=== PATIENT | female | born 1975 | race Two or more races ===

== ENCOUNTER 2017-07-05 19:29 | Emergency (ER) | payer BC ==
[2017-07-05 20:15] LABS: URINE HCG POC HCG POSITIVE (Negative)
[2017-07-05 20:20] LABS: BILIRUBIN,URINE NEGATIVE (NEG); CLARITY,URINE CLEAR; COLOR,URINE YELLOW; GLUCOSE,URINE NEGATIVE (NEG); NITRITE,URINE NEGATIVE (NEG); PROTEIN,URINE NEGATIVE (NEG-TRACE); UROBILINOGEN,URINE 0.2 mg/dL (0.2 mg/dL)
[2017-07-05 20:34] LABS: BACTERIA,URINE MODERATE /HPF (0-FEW); SQUAMOUS EPITHELIAL CELL,UR MOD /LPF
[2017-07-05 20:45] LABS: ADD MAN DIFF? NO
[2017-07-05 20:50] LABS: BASO # 0.1 x10^3/uL (0.0-0.2); BASO % 1 % (0-3); EOS # 0.1 x10^3/uL (0.0-0.7); EOS % 1 % (0-3); HEMATOCRIT 35.8 % (36.0-47.0); HEMOGLOBIN 12.4 g/dL (12.0-15.5); LYMPH # 3.3 x10^3/uL (1.0-4.8); LYMPH % 32 % (24-48); MEAN CORPUSCULAR HEMOGLOBIN 31 pg (25-35); MEAN CORPUSCULAR HGB CONC 35 g/dL (31-37); MEAN CORPUSCULAR VOLUME 89 fL (79-100); MONO # 0.7 x10^3/uL (0.0-1.1); MONO % 7 % (0-9); NEUT % 59 % (31-73); PLATELET COUNT 254 x10^3/uL (140-400); RED BLOOD COUNT 4.02 x10^6/uL (3.50-5.40); RED CELL DISTRIBUTION WIDTH 14.9 % (11.5-14.5); WHITE BLOOD COUNT 10.2 x10^3/uL (4.0-11.0)
[2017-07-05 20:59] LABS: ANION GAP 8 (6-14); BLOOD UREA NITROGEN 15 mg/dL (7-20); CALCIUM 8.7 mg/dL (8.5-10.1); CARBON DIOXIDE 26 mmol/L (21-32); CHLORIDE 105 mmol/L (98-107); CREATININE 0.8 mg/dL (0.6-1.0); GFR 78.3; GLUCOSE 106 mg/dL (70-99); POTASSIUM 3.7 mmol/L (3.5-5.1); SODIUM 139 mmol/L (136-145)
== END 2017-07-05 23:40 | disposition home or self-care (01) ==
LOC: ER 19:29
DX: O20.0 Threatened abortion (principal); Z3A.01 Less than 8 weeks gestation of pregnancy
CPT/HCPCS: 36415; 76801; 76817; 80048; 81001; 81025; 84702; 85025; 86900; 86901; 87086; 99285-25

== ENCOUNTER 2017-07-06 02:29 | Emergency (ER) | payer BC ==
[2017-07-06 03:40] LABS: AGAP ISTAT 17 mmol/L (6-14); BUN ISTAT 12 mg/dL (8-26); CHLORIDE ISTAT 104 mmol/L (98-110); CREATININE ISTAT 0.7 mg/dL (0.5-1.4); GLUCOSE ISTAT 105 mg/dL (70-99); HEMATOCRIT ISTAT 38 % (36-40); HEMOGLOBIN ISTAT 12.9 g/dL (12-15); ION CA ISTAT 1.23 mmol/L (1.13-1.32); POTASSIUM ISTAT 3.9 mmol/L (3.5-5.0); SODIUM ISTAT 139 mmol/L (135-145); TOT CO2 ISTAT 24 mmol/L (23-32)
== END 2017-07-06 04:35 | disposition home or self-care (01) ==
LOC: ER 02:29
DX: O20.0 Threatened abortion (principal); Z3A.01 Less than 8 weeks gestation of pregnancy
CPT/HCPCS: 36415; 80047; 85014; 85018; 99282

== ENCOUNTER → 2017-07-20 | Outpatient (CLI) | payer BC | END | disposition home or self-care (01) | LOC: LAB 17:20 | DX: O03.4 Incomplete spontaneous abortion without complication (principal); Z3A.08 8 weeks gestation of pregnancy | CPT/HCPCS: 36415; 84702 ==

== ENCOUNTER 2020-01-03 13:08 | Emergency (ER) | payer BC, OTHER ==
[~2020-01-03] VITALS: Ht 167.6 cm; Wt 77.0 kg
[~2020-01-03 13:08] MED LIST: UNABLE MC
[2020-01-03 14:11] LABS: BILIRUBIN,URINE NEGATIVE (NEG); CLARITY,URINE CLEAR; COLOR,URINE YELLOW; NITRITE,URINE NEGATIVE (NEG); PH,URINE 7.5 (<5.0-8.0); PROTEIN,URINE NEGATIVE (NEG-TRACE); UROBILINOGEN,URINE 0.2 mg/dL (0.2 mg/dL)
--- NOTE | 2020-01-03 14:14 | PHYS DOC ---
Past Medical History Past Medical History: No Pertinent History Past Surgical History: No Surgical History Smoking Status: Never Smoker Alcohol Use: None Drug Use: None General Adult EDM: Chief Complaint: ABDOMINAL PAIN IN HPI: HPI: History obtained from patient. Patient is a 44-year-old female presents with chief complaint of lower abdominal discomfort over the past 4 days. States she had a positive test and clinic 4 days ago. She estimates for same last menstrual period was November 06. She does note light vaginal spotting 3 day s ago that is resolved. Denies clot passage. Denies syncope. Does note she has an appoint with her CHANDELIER MAKER in 4 days. Denies vomiting. Denies urinary symptoms. States pain is aching and mild in nature. States it is worse when she stands. Denies chest pain or shortness of breath. Has tried no medicine at home prior to arrival. No other complaints. Review of Systems: Review of Systems: Constitutional: Denies fever or chills. [] Eyes: Denies change in visual acuity. [] HENT: Denies nasal congestion or sore throat. [] Respiratory: Denies cough or shortness of breath. [] Cardiovascular: Denies chest pain or edema. [] GI: Positive for abdominal pain : Positive for vaginal bleeding Musculoskeletal: Denies back pain or joint pain. [] Integument: Denies rash. [] Neurologic: Denies headache, focal weakness or sensory changes. [] Endocrine: Denies polyuria or polydipsia. [] Lymphatic: Denies swollen glands. [] Psychiatric: Denies depression or anxiety. [] Heart Score: Risk Factors: Risk Factors: DM, Current or recent (<one month) smoker, HTN, HLP, family history of CAD, obesity. Risk Scores: Score 0 - 3: 2.5% MACE over next 6 weeks - Discharge Home Score 4 - 6: 20.3% MACE over next 6 weeks - Admit for Clinical Observation Score 7 - 10: 72.7% MACE over next 6 weeks - Early Invasive Strategies Current Medications: Current Medications Medications (Trade) Dose Ordered Sig/Valerie Start Time Stop Time Status Last Admin Dose Admin Acetaminophen (Tylenol) 1,000 mg 1X ONCE 01/03/20 14:15 01/03/20 14:16 UNV Allergies: Allergies: Allergies Coded Allergies Type Severity Reaction Last Updated Verified No Known Drug Allergies 07/05/17 No Physical Exam: PE: Constitutional: Well developed, well nourished, no acute distress, non-toxic appearance. [] HENT: Normocephalic, atraumatic, bilateral external ears normal, oropharynx moist, no oral exudates, nose normal. [] Eyes: PERRLA, EOMI, conjunctiva normal, no discharge. [] Neck: Normal range of motion, no tenderness, supple, no stridor. [] Cardiovascular:Heart rate regular rhythm, no murmur [] Lungs & Thorax: Bilateral breath sounds clear to auscultation [] Abdomen: Soft, nontender, nonacute abdomen. No involuntary guarding or rigidity noted. No acute peritonitis. Skin: Warm, dry, no erythema, no rash. [] Back: No tenderness, no CVA tenderness. [] Extremities: No tenderness, no cyanosis, no clubbing, ROM intact, no edema. [] Neurologic: Alert and oriented X 3, normal motor function, normal sensory function, no focal deficits noted. [] Psychologic: Affect normal, judgement normal, mood normal. [] Current Patient Data: Labs: Laboratory Tests Test 01/03/20 13:44 01/03/20 14:10 01/03/20 14:35 Urine Collection Type Unknown Urine Color Yellow Urine Clarity Clear Urine pH 7.5 Urine Specific [place] 1.020 Urine Protein Negative mg/dL Urine Glucose (UA) Negative mg/dL Urine Ketones (Stick) Negative mg/dL Urine Blood Negative Urine Nitrite Negative Urine Bilirubin Negative Urine Urobilinogen Dipstick 0.2 mg/dL Urine Leukocyte Esterase Trace Urine RBC Occ /HPF Urine WBC Occ /HPF Urine Squamous Epithelial Cells Mod /LPF Urine Bacteria Few /HPF Urine Mucus Mod /LPF Bedside Urine HCG, Qualitative Hcg positive White Blood Count 10.3 x10^3/uL Red Blood Count 4.38 x10^6/uL Hemoglobin 13.0 g/dL Hematocrit 38.4 % Mean Corpuscular Volume 88 fL Mean Corpuscular Hemoglobin 30 pg Mean Corpuscular Hemoglobin Concent 34 g/dL Red Cell Distribution Width 15.0 % Platelet Count 288 x10^3/uL Neutrophils (%) (Auto) 61 % Lymphocytes (%) (Auto) 30 % Monocytes (%) (Auto) 7 % Eosinophils (%) (Auto) 2 % Basophils (%) (Auto) 1 % Neutrophils # (Auto) 6.2 x10^3/uL Lymphocytes # (Auto) 3.0 x10^3/uL Monocytes # (Auto) 0.7 x10^3/uL Eosinophils # (Auto) 0.2 x10^3/uL Basophils # (Auto) 0.1 x10^3/uL Maternal Serum HCG Beta Subunit 18515 mIU/mL Sodium Level 138 mmol/L Potassium Level 4.1 mmol/L Chloride Level 104 mmol/L Carbon Dioxide Level 24 mmol/L Anion Gap 10 Blood Urea Nitrogen 13 mg/dL Creatinine 0.8 mg/dL Estimated GFR (Cockcroft-Gault) 77.6 BUN/Creatinine Ratio 16 Glucose Level 85 mg/dL Calcium Level 9.0 mg/dL Total Bilirubin 0.1 mg/dL Aspartate Amino Transf (AST/SGOT) 14 U/L Alanine Aminotransferase (ALT/SGPT) 20 U/L Alkaline Phosphatase 39 U/L Total Protein 7.1 g/dL Albumin 3.4 g/dL Albumin/Globulin Ratio 0.9 Lipase 175 U/L Current Medications Medications (Trade) Dose Ordered Sig/Valerie Route PRN Reason Start Time Stop Time Status Last Admin Dose Admin Acetaminophen (Tylenol) 1,000 mg 1X ONCE PO 01/03/20 14:15 01/03/20 14:16 DC 01/03/20 14:31 Laboratory Tests Test 01/03/20 14:10 POC Urine HCG, Qualitative Hcg positive (Negative) Vital Signs: Vital Signs Date Time Temp Pulse Resp B/P (MAP) Pulse Ox O2 Delivery O2 Flow Rate FiO2 01/03/20 14:04 97.5 68 16 110/61 (77) 97 Room Air 97.5 EKG: EKG: [] Radiology/Procedures: Radiology/Procedures: [facility] [address] [place] [address] IMAGING REPORT Signed PATIENT: SAMEER CLAY AACCOUNT: [id number] : 1975 LOCATION: ER AGE: 44 SEX: F EXAM STATUS: REG ER ORD. PHYSICIAN: JÚNIOR PEACOCK DO REASON: lower abdominal pain + preg PROCEDURE: OB <14 WKS W/TV Exam: Ultrasound OB less than 14 weeks Indication: Lower abdominal pain Technique: Real-time grayscale and color Doppler images of the pelvis were obtained by the department journeyman sheet metal worker. Comparisons: None FINDINGS: Uterus measures 11.9 x 6.9 x 6.2 cm. Within the endometrium there is a 1.5 cm ovoid hypoechoic structure. No internal yolk sac or pole is identified. Right ovary measures 3.0 x 1.8 x 2.1 cm. Vascular flow identified within the right ovary. Left ovary is not seen. No free fluid is identified. IMPRESSION: Possible gestational sac within the endometrium. No internal yolk sac or pole identified. Differential considerations include early IUP, failed IUP. Possibility of a nonvisualized ectopic with a pseudogestational sac is considered unlikely. Recommend correlation with serial beta hCG measurements and short-term follow-up ultrasound. Electronically signed by: Luigi Pradhan MD (01/03/2020 3:11 PM) [facility] DICTATED and SIGNED BY: LUIGI PRADHAN MD DATE: 01/03/201510 [] Course & Med Decision Making: Course & Med Decision Making Pertinent Labs and Imaging studies reviewed. (See chart for details) [] Patient is a well-appearing 44-year-old female G5, P2 who presents with chief complaint of lower abdominal discomfort and concern for . hCG level approximately 21,000. Ultrasound does reveal potential gestational sac without pole. Hemoglobin stable. Type and screen obtained previously shows blood type B+. RhoGam will be deferred. Pelvic exam also be deferred given the patient has no vaginal bleeding at this time. Patient's imaging findings could relate to early gestational . Given the patient's abdomen is benign, no current pain, no active bleeding with normal vital signs I do feel is appropriate to discharge patient home with close follow-up. She does have an appoint with her CHANDELIER MAKER in 2 days. She was instructed to return emergency department if she experiences symptoms including but not limited to worsening abdominal pain or vaginal bleeding. She did express understanding. She is comfortable with this plan. Encouraged use Tylenol at home. Stable for discharge. Dragon Disclaimer: Dragon Disclaimer: This electronic medical record was generated, in whole or in part, using a voice recognition dictation system. Departure Departure Impression: Primary Impression: , location unknown Disposition: 01 DC HOME SELF CARE/HOMELESS Condition: STABLE Referrals: NO PCP (PCP) Patient Instructions: Ectopic , Vaginal Bleeding During , [id number] Additional Instructions: Please follow-up with your CHANDELIER MAKER in the next 2 days. At your regularly scheduled appointment. [facility] [address] [place] [address] [facility] [address] [place] [address] [facility] [address] [facility] [place] [address] [facility] [address] [place] [address] [facility] [address] [place] [address] [address] [place] [address] [address] [place] [address] [place] [address] [facility] [address] [place] [address] [facility] [address] [place] [address] [facility] [address] [place] [address] JÚNIOR PEACOCK DO Jan 03, 2020 14:14
[2020-01-03] MEDS ORDERED: ACETAMINOPHEN 500 MG TABLET PO ONE (14:15)
[2020-01-03 14:19] LABS: BACTERIA,URINE FEW /HPF (0-FEW); RBC,URINE OCC /HPF (0-2); WBC,URINE OCC /HPF (0-4)
[2020-01-03 14:46] LABS: BASO # 0.1 x10^3/uL (0.0-0.2); BASO % 1 % (0-3); EOS # 0.2 x10^3/uL (0.0-0.7); EOS % 2 % (0-3); HEMATOCRIT 38.4 % (36.0-47.0); LYMPH % 30 % (24-48); MEAN CORPUSCULAR HEMOGLOBIN 30 pg (25-35); MEAN CORPUSCULAR HGB CONC 34 g/dL (31-37); MEAN CORPUSCULAR VOLUME 88 fL (79-100); MONO # 0.7 x10^3/uL (0.0-1.1); MONO % 7 % (0-9); NEUT # 6.2 x10^3/uL (1.8-7.7); NEUT % 61 % (31-73); PLATELET COUNT 288 x10^3/uL (140-400); RED BLOOD COUNT 4.38 x10^6/uL (3.50-5.40); WHITE BLOOD COUNT 10.3 x10^3/uL (4.0-11.0)
[2020-01-03 14:57] LABS: CREATININE 0.8 mg/dL (0.6-1.0); GFR 77.6; POTASSIUM 4.1 mmol/L (3.5-5.1)
[2020-01-03 15:03] LABS: ALBUMIN 3.4 g/dL (3.4-5.0); ALBUMIN/GLOBULIN RATIO 0.9 (1.0-1.7); TOTAL BILIRUBIN 0.1 mg/dL (0.2-1.0); TOTAL PROTEIN 7.1 g/dL (6.4-8.2)
--- NOTE | 2020-01-03 15:14 | RAD ---
Exam: Ultrasound OB less than 14 weeks Indication: Lower abdominal pain Technique: Real-time grayscale and color Doppler images of the pelvis were obtained by the department road mixer operator. Comparisons: None FINDINGS: Uterus measures 11.9 x 6.9 x 6.2 cm. Within the endometrium there is a 1.5 cm ovoid hypoechoic structure. No internal yolk sac or pole is identified. Right ovary measures 3.0 x 1.8 x 2.1 cm. Vascular flow identified within the right ovary. Left ovary is not seen. No free fluid is identified. IMPRESSION: Possible gestational sac within the endometrium. No internal yolk sac or pole identified. Differential considerations include early IUP, failed IUP. Possibility of a nonvisualized ectopic with a pseudogestational sac is considered unlikely. Recommend correlation with serial beta hCG measurements and short-term follow-up ultrasound. Electronically signed by: Luigi Mcmahan MD (01/03/2020 3:11 PM) [facility]
[2020-01-03 16:00] VITALS: BP 100/59
== END 2020-01-03 16:25 | disposition home or self-care (01) ==
LOC: ER 13:08
DX: O36.80X0 Pregnancy with inconclusive fetal viability, not applicable or unspecified (principal); Z3A.00 Weeks of gestation of pregnancy not specified
CPT/HCPCS: 36415; 76801; 76817; 80053; 81001; 81025; 83690; 84702; 85025; 87086; 99284